=== PATIENT | male | born 1995 | race Caucasian/White ===

== ENCOUNTER 2019-09-06 10:13 | Emergency (ER) | payer OTHER, BC, SELFPAY ==
--- NOTE | 2019-09-06 10:20 | ED.GENADULT ---
HPI - General Adult General Chief complaint: Nausea/Vomiting/Diarrhea Stated complaint: Abd pain/Nausea/Vomiting/Diarreha Time Seen by Provider: 09/06/19 10:20 Source: patient Mode of arrival: ambulatory Limitations: no limitations History of Present Illness HPI narrative: 24-year-old male patient presents to the [facility] with complaints of nausea vomiting diarrhea that started approximately midnight last night. Patient states that his last vomiting episode was approximately 5 AM this morning. Patient states he has been able to take sips of water that he has been able to keep down since his last vomiting episode. Patient denies any abdominal pain or fevers. Denies any sore throat, runny nose or ear pain. Patient states he is also had some diarrhea but denies any blood in the stool denies any black tarry stools. Related Data Home Medications Medication Instructions Recorded Confirmed azelastine-fluticasone [Dymista] 1 spray INTRANASAL BID 09/06/19 09/06/19 fluticasone propion-salmeterol 1 puff INHALATION Q12H 09/06/19 09/06/19 [Wixela Inhub] Allergies Allergy/AdvReac Type Severity Reaction Status Date / Time No Known Allergies Allergy Verified 09/06/19 10:40 Review of Systems Review of Systems: Narrative: CONSTITUTIONAL: Denies fever, chills, or sweats. EYES: Denies visual changes, redness, or discharge. ENT: Denies rhinorrhea, congestion, sore throat, or otalgia. CARDIOVASCULAR: Denies chest pain, palpitations, or edema. RESPIRATORY: Denies cough or dyspnea. GASTROINTESTINAL: Denies abdominal pain, positive nausea, vomiting, and diarrhea. GENITOURINARY: Denies dysuria or hematuria. SKIN: Denies rash or itching. MUSCULOSKELETAL: Denies back pain, joint pain, or myalgia. NEUROLOGIC: Denies headache, numbness, or weakness. PSYCHIATRIC: Denies anxiety or depression. PMFSH Past Medical History Medical History (Updated 09/06/19 @ 10:48 by EUSEBIO Barillas) Asthma Right wrist fracture Comments At the time of my signature I agree with nursing past medical history, surgical, social, and family history. There is no relevant family history pertinent to the presenting complaint. Exam Narrative: Exam Narrative: GENERAL: Well-appearing, well-nourished, and in no acute distress. HEAD: Normocephalic, atraumatic. EYES: PERRLA and EOMI. ENT: Nares clear, no rhinorrhea or epistaxis. Mucous membranes moist. NECK: Supple. No lymphadenopathy CHEST: Clear to auscultation. No respiratory distress. HEART: Regular rate and rhythm. No murmur heard. Normal peripheral pulses. ABDOMEN: Soft, flat, nondistended. No guarding, rebound tenderness, or rigid. No pulsatilla masses. Hyperactive bowel sounds present in all four quadrants. No organomegaly. Negative Andrews?s sign. No periumbicial tenderness. No Supra public tenderness or distension. Good femoral pulses bilaterally. No hernia noted. No scars or surface trauma. EXTREMITIES: Normal range of motion. No edema. SKIN: Warm, dry, no rash. NEURO: No focal deficits. Alert and oriented x3. Course Reevaluation(s) Reevaluation #1: Reevaluated patient after his Zofran and p.o. challenge. Patient states that the nausea is starting to get a little bit better but is still there. Patient is able to keep down water. Discussed with him we will go ahead and discharge him home with Zofran to help with the nausea and vomiting along with some Pepcid and Bentyl for his stomach issues however if his symptoms get worse and he develops worsening abdominal pain, high fevers or continues to vomit he would need to go the ER. Patient verbalized understanding denies any other questions or concerns at this time. Date: 09/06/19 Time: 11:08 Vital Signs Vital signs: Vital Signs Temperature 36.6 C 09/06/19 10:26 Pulse Rate 68 09/06/19 10:26 Respiratory Rate 16 09/06/19 10:26 Blood Pressure 141/81 H 09/06/19 10:26 Pulse Oximetry 100 09/06/19 10:26 Temperature 36.6 C 09/06/19 10
[2019-09-06 10:26] VITALS: BP 141/81; PULSE 68; RESP 16; TEMP 36.6; O2SAT 100
[2019-09-06] MEDS: ONDANSETRON HCL ODT 4 MG TABLET PO (10:49)
== END 2019-09-06 11:22 | disposition home or self-care (01) ==
PROVIDERS: Emergency Provider Nurse Practitioner Family
DX: A08.4 Viral intestinal infection, unspecified (principal)
CPT/HCPCS: 99213; A9270; G0463

== ENCOUNTER 2020-04-03 13:43 | Emergency (ER) | payer OTHER, BC, SELFPAY ==
[2020-04-03 13:49] VITALS: BP 129/67; PULSE 79; RESP 16; TEMP 36.9; O2SAT 99
--- NOTE | 2020-04-03 14:17 | ED.SKABFB ---
HPI - Skin/Abscess/Foreign Bdy General Chief complaint: Skin/Abscess/Foreign Body Stated complaint: rash on legs Time Seen by Provider: 04/03/20 14:05 Source: patient Mode of arrival: ambulatory Limitations: no limitations History of Present Illness HPI narrative: Denis Rehman is a 24 yo male with no PMH who comes with a red coalesced rash bilateral lower legs and right forearm red papule with 4 x 4 induration around it. The areas are tender, some of them are oozing. All are pruritic. The initial breakout started on Saturday and he tried to manage it with calamine and Benadryl lotion Related Data Home Medications Medication Instructions Recorded Confirmed azelastine-fluticasone [Dymista] 1 spray INTRANASAL BID 09/06/19 04/03/20 cetirizine 10 mg PO DAILY 04/03/20 04/03/20 fluticasone propion-salmeterol 2 puff INHALATION BID 04/03/20 04/03/20 [Advair HFA] Allergies Allergy/AdvReac Type Severity Reaction Status Date / Time latex Allergy Rash Verified 04/03/20 14:03 Review of Systems Review of Systems: Narrative: CONSTITUTIONAL: Denies fever, chills, sweats. EYES: Denies visual changes, redness, discharge. ENT: Denies rhinorrhea, congestion, sore throat, otalgia. CARDIOVASCULAR: Denies chest pain, palpitations, edema. RESPIRATORY: Denies dyspnea, wheezing, cough GASTROINTESTINAL: Denies abdominal pain, nausea, vomiting, diarrhea. GENITOURINARY: Denies dysuria, hematuria, abnormal discharge SKIN: Rash that is using and on both lower legs and right forearm; it itches, some of them are oozing NEUROLOGIC: Denies numbness, or focal weakness. PSYCHIATRIC: Denies anxiety or depression. [facility] Past Medical History Medical History Asthma Right wrist fracture Family History Family History Other No active medical problems Social History Social History Smoking status: Never smoker Alcohol intake: current Comments At time of signature, I agree with nursing past medical, surgical, social and family history. There is no relevant family history pertinent to the presenting complaint. Exam Narrative: Exam Narrative: GENERAL: This is a well-nourished, well-developed patient, in mild distress. HEAD: normocephalic, atraumatic. EYES: Sclera clear/white. Vision is grossly intact. EARS: External ears normal,. Hearing grossly intact. NOSE: External nose normal without nasal discharge, nares without redness, no rhinorrhea. THROAT: Mucous membranes moist, NECK: Neck supple, CARDIOVASCULAR: Regular rate and rhythm without murmurs, gallops, or rubs. RESPIRATORY: Clear to auscultation. Breath sounds equal bilaterally. No wheezes, rales, or rhonchi. GASTROINTESTINAL: Abdomen soft, SKIN: warm, intact with no suspicious lesions or rash, good texture and turgor bilateral papular rash on both lower extremities on left anterior tibia there is a 4 x 4 area of coalesced papular crusted rash on right forearm 4 x 4 indurated tender area, right lower leg is diffusely covered with red papules. NEURO: awake, alert, and oriented to person, place and time. There were no obvious focal neurologic abnormalities. Steady gait EXTREMITIES: Normal range of motion. BACK: Nontender without deformity Course Course Emergency Course: Started on Keflex, prednisone taper pack, Vistaril-) use of topical lotions and using soap and water to scrub areas clean once a day, recommended use of Benadryl during the day for itching and use of Vistaril at night Follow-up with PCP Vital Signs Vital signs: Vital Signs Temperature 98.5 F 04/03/20 13:49 Pulse Rate 79 04/03/20 13:49 Respiratory Rate 16 04/03/20 13:49 Blood Pressure 129/67 04/03/20 13:49 Pulse Oximetry 99 04/03/20 13:49 Temperature 98.5 F 04/03/20 13:49 Pulse Rate 79 04/03/20 13:49 Respiratory Rate 16
[2020-04-03] MEDS: predniSONE 20 MG TABLET 60 MG PO (14:30)
== END 2020-04-03 14:48 | disposition home or self-care (01) ==
PROVIDERS: Emergency Provider Nurse Practitioner; PCP Family Medicine
DX: L08.9 Local infection of the skin and subcutaneous tissue, unspecified (principal); L23.7 Allergic contact dermatitis due to plants, except food; J45.909 Unspecified asthma, uncomplicated
CPT/HCPCS: 99213; G0463; J7512

== ENCOUNTER 2020-04-12 11:57 | Emergency (ER) | payer BC, OTHER, SELFPAY ==
[2020-04-12 12:00] VITALS: BP 139/78; PULSE 83; RESP 20; TEMP 36.6; O2SAT 99
--- NOTE | 2020-04-12 12:07 | ED.SKABFB ---
HPI - Skin/Abscess/Foreign Bdy General Chief complaint: Skin/Abscess/Foreign Body Stated complaint: stiches removed on right index finger Time Seen by Provider: 04/12/20 12:07 Source: patient and RN notes reviewed History of Present Illness HPI narrative: Patient is a 24-year-old male who presents the urgent care with request for suture removal to the right index finger. Patient states that this is day 8 of the sutures after he cut it while doing dishes. Patient denies of any pain, swelling, redness or discharge from the area. No other acute complaints. No acute distress noted. Patient read the plan of care. Related Data Home Medications Medication Instructions Recorded Confirmed azelastine-fluticasone [Dymista] 1 spray INTRANASAL BID 09/06/19 04/03/20 cetirizine 10 mg PO DAILY 04/03/20 04/03/20 albuterol sulfate [ProAir 2 inh INHALATION Q4-6H PRN 04/12/20 04/12/20 RespiClick] fluticasone propion-salmeterol 1 inh INHALATION Q12H 04/12/20 04/12/20 [Advair Diskus] Allergies Allergy/AdvReac Type Severity Reaction Status Date / Time latex Allergy Rash Verified 04/12/20 12:14 Review of Systems Review of Systems: Narrative: CONSTITUTIONAL: Denies fever, chills, or sweats. EYES: Denies visual changes, redness, or discharge. ENT: Denies rhinorrhea, congestion, sore throat, or otalgia. CARDIOVASCULAR: Denies chest pain, palpitations, or edema. RESPIRATORY: Denies cough or dyspnea. GASTROINTESTINAL: Denies abdominal pain, nausea, vomiting, or diarrhea. GENITOURINARY: Denies dysuria or hematuria. SKIN: Reports of needing sutures removed of the right index finger MUSCULOSKELETAL: Denies back pain, joint pain, or myalgia. NEUROLOGIC: Denies headache, numbness, or weakness. All other systems reviewed are negative, except as documented in HPI. [facility] Social History Social History Smoking status: Never smoker Alcohol intake: current Comments At the time of my signature, I reviewed and agree with the nursing past medical, surgical, social, and family history. There is no relevant family history pertinent to the patient complaint. Exam Narrative: Exam Narrative: GENERAL: This is a well-nourished, well-developed patient, in no apparent distress. HEAD: normocephalic, atraumatic. EYES: PERRL. Sclera clear/white. Vision is grossly intact. EARS: External ears normal NOSE: External nose normal with no obvious nasal discharge, nares without redness, no rhinorrhea. THROAT: Mucous membranes moist NECK: Neck supple, SKIN: 1 cm linear laceration approximated with 4 sutures noted to the tuft of the right index finger. Warm, intact with no suspicious lesions or rash, good texture and turgor. NEURO: awake, alert, and oriented to person, place and time. There were no obvious focal neurologic abnormalities. EXTREMITIES: No clubbing, cyanosis, or edema. Course Vital Signs Vital signs: Vital Signs Temperature 98 F 04/12/20 12:00 Pulse Rate 83 04/12/20 12:00 Respiratory Rate 20 04/12/20 12:00 Blood Pressure 139/78 04/12/20 12:00 Pulse Oximetry 99 04/12/20 12:00 Temperature 98 F 04/12/20 12:00 Pulse Rate 83 04/12/20 12:00 Respiratory Rate 20 04/12/20 12:00 Blood Pressure 139/78 04/12/20 12:00 Pulse Oximetry 99 04/12/20 12:00 Reviewed Procedures Other Procedure Procedure 1: Other Procedure: Area cleansed with Betadine swab. Suture removal to 1 cm linear laceration of the right index finger tuft. 4 sutures removed. Wound healed and approximated well. Neosporin applied and a bandage applied. Patient tolerated well. MDM - Skin/Abscess/Foreign Bdy MDM Narrative Medical decision making narrative: Advised the patient to continue using Neosporin and a Band-Aid over the area the next few days. Be aware of signs and symptoms of infection such as swelling, redness, drainage from the area. Wound had approximated well and appears to be he
== END 2020-04-12 12:20 | disposition home or self-care (01) ==
PROVIDERS: Emergency Provider Nurse Practitioner Family; PCP Family Medicine
DX: S61.210A Laceration without foreign body of right index finger without damage to nail, initial encounter (principal); W45.8XXA Other foreign body or object entering through skin, initial encounter; Y93.G1 Activity, food preparation and clean up; J45.909 Unspecified asthma, uncomplicated
CPT/HCPCS: 99211; G0463

== ENCOUNTER 2020-09-20 11:58 | Emergency (ER) | payer OTHER, SELFPAY ==
[2020-09-20 12:20] VITALS: BP 130/75; PULSE 72; RESP 18; TEMP 37.3; O2SAT 99
--- NOTE | 2020-09-20 12:59 | ED.SKABFB ---
HPI - Skin/Abscess/Foreign Bdy General Chief complaint: Allergic Reaction Stated complaint: Alergic Reaction Time Seen by Provider: 09/20/20 12:53 Source: patient and RN notes reviewed Mode of arrival: ambulatory Limitations: no limitations History of Present Illness HPI narrative: Patient presents today today complaining of a rash to his right arm x5 days. The rash appeared after he donated blood. Believes it is likely due to the solution that was used to cleanse his arm prior to donation. States it itches profusely. Denies pain. Denies drainage. He has been using Benadryl and hydrocortisone without relief. MD complaint: rash Related Data Home Medications Medication Instructions Recorded Confirmed cetirizine 10 mg PO DAILY 04/03/20 09/20/20 albuterol sulfate [ProAir 2 inh INHALATION Q4-6H PRN 04/12/20 09/20/20 RespiClick] azelastine-fluticasone 1 spray INTRANASAL DAILY 09/20/20 09/20/20 azelastine-fluticasone [Dymista] 1 spray INTRANASAL BID 09/20/20 09/20/20 Allergies Allergy/AdvReac Type Severity Reaction Status Date / Time latex Allergy Rash Verified 09/20/20 12:09 Review of Systems Review of Systems: Narrative: CONSTITUTIONAL: Denies body aches, fever, chills, or sweats. EYES: Denies visual changes, redness, or discharge. ENT: Denies rhinorrhea, congestion, sore throat, or otalgia. CARDIOVASCULAR: Denies chest pain, palpitations, or edema. RESPIRATORY: Denies cough or dyspnea. GASTROINTESTINAL: Denies abdominal pain, nausea, vomiting, or diarrhea. GENITOURINARY: Denies dysuria or hematuria. SKIN: + Pruritic rash to right arm MUSCULOSKELETAL: Denies back pain, joint pain, or myalgia. NEUROLOGIC: Denies headache, numbness, tingling, or weakness. PSYCH: Denies depression or anxiety. [facility] Past Medical History Medical History (Updated 09/20/20 @ 13:05 by Sandra Sharp, [employer], [place]) Asthma Right wrist fracture Family History Family History Other No active medical problems Social History Social History (Reviewed 08/30/20 @ 14:21 by AMEENA Hernandez Smoking status: Never smoker Alcohol intake: current Comments At time of signature, I have reviewed and agree with nursing past medical, surgical, social and family history unless otherwise noted. Please see nursing chart for further information. There is no relevant family history pertinent to the presenting complaint Exam Narrative: Exam Narrative: GENERAL: Well-appearing, well-nourished, and in no acute distress. HEAD: Normocephalic, atraumatic. EYES: EOMI. No redness or drainage. Conjunctivae normal. ENT: Mucous membranes pink and moist. NECK: Normal AROM. CHEST: No respiratory distress. EXTREMITIES: Normal range of motion. No edema. SKIN: Warm, dry. Capillary refill normal. Normal skin turgor. Erythematous papular rash to the right antecubital fossa measuring approximately 12 x 10 cm. No induration, fluctuance, drainage or crusting. Nontender to palpation. No increased warmth. NEURO: No focal deficits. Alert and oriented x3. Gait steady. PSYCH: Normal affect. No signs of depression or anxiety. Course Vital Signs Vital signs: Vital Signs Temperature 99.1 F 09/20/20 12:20 Pulse Rate 72 09/20/20 12:20 Respiratory Rate 18 09/20/20 12:20 Blood Pressure 130/75 09/20/20 12:20 Pulse Oximetry 99 09/20/20 12:20 Temperature 97.5 F L 09/20/20 12:42 Pulse Rate 89 09/20/20 12:42 Respiratory Rate 16 09/20/20 12:42 Blood Pressure 171/90 H 09/20/20 12:42 Pulse Oximetry 96 09/20/20 12:42 Reviewed. Pt has been instructed to follow up with his PCP regarding his elevated blood pressure today. MDM - Skin/Abscess/Foreign Bdy Differential Diagnosis Differential diagnosis: Likely abscess of skin or subcutaneous tissue, urticaria, herpes zoster, allergic reaction to drug, cellulitis, eczema, impetigo and contact dermatitis Critical Care Time
== END 2020-09-20 13:10 | disposition home or self-care (01) ==
PROVIDERS: Emergency Provider Nurse Practitioner; PCP Family Medicine
DX: L25.9 Unspecified contact dermatitis, unspecified cause (principal); J45.909 Unspecified asthma, uncomplicated
CPT/HCPCS: 99213; G0463

== ENCOUNTER 2021-03-12 15:28 | Emergency (ER) | payer OTHER, SELFPAY ==
[2021-03-12 15:30] VITALS: BP 127/78; PULSE 78; RESP 18; TEMP 36.8; O2SAT 99
--- NOTE | 2021-03-12 15:32 | ED.SKABFB ---
HPI - Skin/Abscess/Foreign Bdy General Chief complaint: Skin/Abscess/Foreign Body Stated complaint: rash / reaction on left leg Time Seen by Provider: 03/12/21 15:32 Source: patient and RN notes reviewed History of Present Illness HPI narrative: Patient is a 25-year-old male who presents the urgent care with complaints of a rash to the outside of the left leg. Patient states that he noticed it 4 days ago after walking through the [place] and taking his dog for walks in the evening. States that the area started out appearing as welted bug bites . Patient believes that he has itched it in his sleep. Patient states it is itchy but not painful. States that he has been taking Benadryl without much relief. Patient has not put anything topical on the area. No other acute complaints. No acute distress noted. Patient aware of the plan of care. Some parts of this dictation were generated by voice recognition software and may contain typographical and/or grammatical inaccuracies. Related Data Home Medications Medication Instructions Recorded Confirmed cetirizine 10 mg PO DAILY 04/03/20 09/20/20 albuterol sulfate [ProAir 2 inh INHALATION Q4-6H PRN 04/12/20 09/20/20 RespiClick] Allergies Allergy/AdvReac Type Severity Reaction Status Date / Time chlorhexidine Allergy Unknown Verified 03/12/21 15:53 latex Allergy Rash Verified 03/12/21 15:41 povidone-iodine Allergy Unknown Verified 03/12/21 15:53 [From Betadine] Review of Systems Review of Systems: CONSTITUTIONAL: Denies fever, chills, or sweats. EYES: Denies visual changes, redness, or discharge. ENT: Denies rhinorrhea, congestion, sore throat, or otalgia. CARDIOVASCULAR: Denies chest pain, palpitations, or edema. RESPIRATORY: Denies cough or dyspnea. GASTROINTESTINAL: Denies abdominal pain, nausea, vomiting, or diarrhea. GENITOURINARY: Denies dysuria or hematuria. SKIN: Reports of itchy red rash to the outside of the left leg MUSCULOSKELETAL: Denies back pain, joint pain, or myalgia. NEUROLOGIC: Denies headache, numbness, or weakness. All other systems reviewed are negative, except as documented in HPI. [facility] Past Medical History Medical History (Updated 03/12/21 @ 15:40 by EUSEBIO Daugherty) Asthma Right wrist fracture Family History Family History Other No active medical problems Social History Social History Smoking status: Never smoker Alcohol intake: current Comments At the time of my signature, I reviewed and agree with the nursing past medical, surgical, social, and family history. There is no relevant family history pertinent to the patient complaint. Exam Narrative: GENERAL: This is a well-nourished, well-developed patient, in no apparent distress. HEAD: normocephalic, atraumatic. EYES: PERRL. Sclera clear/white. Vision is grossly intact. EARS: External ears normal NOSE: External nose normal with no obvious nasal discharge, nares without redness, no rhinorrhea. THROAT: Mucous membranes moist NECK: Neck supple CARDIOVASCULAR: Regular rate and rhythm without murmurs, gallops, or rubs. RESPIRATORY: Clear to auscultation. Breath sounds equal bilaterally. No wheezes, rales, or rhonchi. SKIN: 14 x 6 cm area of erythemic pustular dermatitis to the lateral aspect of the left lower leg NEURO: awake, alert, and oriented to person, place and time. There were no obvious focal neurologic abnormalities. EXTREMITIES: No clubbing, cyanosis, or edema. Course Vital Signs Vital signs: Vital Signs Temperature 98.3 F 03/12/21 15:30 Pulse Rate 78 03/12/21 15:30 Respiratory Rate 18 03/12/21 15:30 Blood Pressure 127/78 03/12/21 15:30 Pulse Oximetry 99 03/12/21 15:30 Temperature 98.3 F 03/12/21 15:30 Pulse Rate 78 03/12/21 15:30 Respiratory Rate 18 03/12/21 15:30 Blood Pressure 127/78 03/12/21 15:30 Pulse Ox
== END 2021-03-12 15:41 | disposition home or self-care (01) ==
PROVIDERS: Emergency Provider Nurse Practitioner Family; PCP Family Medicine
DX: L23.7 Allergic contact dermatitis due to plants, except food (principal); J45.909 Unspecified asthma, uncomplicated
CPT/HCPCS: 99213; G0463